=== PATIENT | male | born 1990 | race Hispanic/Latino ===

== ENCOUNTER 2020-11-20 17:55 | Emergency (ER) | payer SELFPAY ==
[~2020-11-20] VITALS: Ht 170.2 cm; Wt 80.3 kg
[2020-11-20] MEDS ORDERED: HYDROCODONE/APAP 10MG-325MG TAB PO ONE (19:15)
[2020-11-20] MEDS ORDERED: IBUPROFEN 600 MG TAB PO STA (19:15)
[2020-11-20] MEDS ORDERED: HYDROCODON-ACE1 EA12 PO (22:04)
== END 2020-11-20 22:11 | disposition home or self-care (01) ==
LOC: ER 18:46
DX: S42.002A Fracture of unspecified part of left clavicle, initial encounter for closed fracture (principal); V28.4XXA Motorcycle driver injured in noncollision transport accident in traffic accident, initial encounter; Y92.488 Other paved roadways as the place of occurrence of the external cause
CPT/HCPCS: 71250; 99284